=== PATIENT | male | born 1945 | race Caucasian/White ===

== ENCOUNTER → 2016-06-24 | Outpatient (CLI) | payer OTHER ==
[~2016-06-24] MED LIST: ALBU18HF INH; ALBU8.5H5 INH; ALLO300T PO; AZAT50TA9 PO; FLUT1DIS5 IH; FURO40TA6 PO; HYDR-3138 PO; IPRA4AER INH; METO25TA35 PO; MUPI22OI2 TP; POTA10TA90 PO; RANI150T4 PO; TIOT18CA INH; [UNRECOGNIZED DRUG - CODE] TP
== END | disposition home or self-care (01) ==
LOC: WOUND 14:00
PROVIDERS: ATTEND Internal Medicine
DX: S41.102D Unspecified open wound of left upper arm, subsequent encounter (principal); J44.9 Chronic obstructive pulmonary disease, unspecified; I10 Essential (primary) hypertension; Z85.828 Personal history of other malignant neoplasm of skin; Z87.891 Personal history of nicotine dependence; Z72.89 Other problems related to lifestyle; X58.XXXD Exposure to other specified factors, subsequent encounter
CPT/HCPCS: 99214

== ENCOUNTER 2016-09-20 16:55 | Emergency (ER) | payer OTHER ==
[~2016-09-20] VITALS: Ht 182.9 cm; Wt 80.0 kg
[2016-09-20 16:56] VITALS: BP 196/108
[2016-09-20] MEDS ORDERED: LIDOCAINE 1%, 20ML SQ ONE (18:00)
[2016-09-20] MEDS ORDERED: LIDOCAINE 1%, 20ML ONE (18:17)
[2016-09-20] MEDS ORDERED: DIPH,PERTUSS(ACELL),TET VAC/PF 0.5 ML IM-VACC ONE ×2 (19:53→21:00)
[2016-09-20] MEDS ORDERED: BACITRACIN ZINC OINT 500U/GM, 0.9 GM ONE (19:58)
== END 2016-09-20 20:45 | disposition home or self-care (01) ==
LOC: ED 18:20
DX: S81.011A Laceration without foreign body, right knee, initial encounter (principal); I10 Essential (primary) hypertension; W01.0XXA Fall on same level from slipping, tripping and stumbling without subsequent striking against object, initial encounter; Y93.89 Activity, other specified; Y99.8 Other external cause status; Y92.009 Unspecified place in unspecified non-institutional (private) residence as the place of occurrence of the external cause
CPT/HCPCS: 13121; 13122; 13131; 13132; 90471; 90715

== ENCOUNTER → 2017-06-04 | Outpatient (CLI) | payer MEDICARE, OTHER ==
[~2017-06-04] MED LIST changes: -HYDR-3138 PO; +HYDR-3237 PO; +POTA10TA6 PO; -POTA10TA90 PO
== END | disposition home or self-care (01) ==
LOC: WOUND 13:20
PROVIDERS: ATTEND Family Medicine
DX: S51.811A Laceration without foreign body of right forearm, initial encounter (principal); S21.212A Laceration without foreign body of left back wall of thorax without penetration into thoracic cavity, initial encounter; S60.811A Abrasion of right wrist, initial encounter; I10 Essential (primary) hypertension; J44.9 Chronic obstructive pulmonary disease, unspecified; Z85.828 Personal history of other malignant neoplasm of skin; Z87.891 Personal history of nicotine dependence; Z72.89 Other problems related to lifestyle; X58.XXXA Exposure to other specified factors, initial encounter; Y93.89 Activity, other specified; Y92.89 Other specified places as the place of occurrence of the external cause; Y99.8 Other external cause status
CPT/HCPCS: 97597; 97598; G0463; WOU0463

== ENCOUNTER → 2017-06-11 | Outpatient (CLI) | payer MEDICARE, OTHER | END | disposition home or self-care (01) | LOC: WOUND 13:17 | PROVIDERS: ATTEND Family Medicine | DX: S51.811D Laceration without foreign body of right forearm, subsequent encounter (principal); S21.212D Laceration without foreign body of left back wall of thorax without penetration into thoracic cavity, subsequent encounter; S60.811D Abrasion of right wrist, subsequent encounter; I10 Essential (primary) hypertension; J44.9 Chronic obstructive pulmonary disease, unspecified; Z85.828 Personal history of other malignant neoplasm of skin; Z87.891 Personal history of nicotine dependence; Z72.89 Other problems related to lifestyle; X58.XXXD Exposure to other specified factors, subsequent encounter | CPT/HCPCS: 97597 ==

== ENCOUNTER 2017-06-14 17:40 | Emergency (ER) | payer MEDICARE, OTHER ==
[~2017-06-14] VITALS: Ht 182.9 cm; Wt 84.0 kg
[2017-06-14] MEDS ORDERED: L.E.T SOLUTION TP ONE ×2 (18:30→18:32)
[2017-06-14 19:03] VITALS: BP 107/66
== END 2017-06-14 22:07 | disposition home or self-care (01) ==
LOC: ED 22:06
DX: S41.002A Unspecified open wound of left shoulder, initial encounter (principal); S61.502A Unspecified open wound of left wrist, initial encounter; J44.9 Chronic obstructive pulmonary disease, unspecified; I10 Essential (primary) hypertension; I25.10 Atherosclerotic heart disease of native coronary artery without angina pectoris; W18.30XA Fall on same level, unspecified, initial encounter; W19.XXXA Unspecified fall, initial encounter; Y93.89 Activity, other specified; Y99.8 Other external cause status; Y92.009 Unspecified place in unspecified non-institutional (private) residence as the place of occurrence of the external cause
CPT/HCPCS: 71045; 99283

== ENCOUNTER → 2017-06-18 | Outpatient (CLI) | payer MEDICARE, OTHER | END | disposition home or self-care (01) | LOC: WOUND 14:00 | PROVIDERS: ATTEND Family Medicine | DX: S51.812A Laceration without foreign body of left forearm, initial encounter (principal); S61.412A Laceration without foreign body of left hand, initial encounter; S21.212A Laceration without foreign body of left back wall of thorax without penetration into thoracic cavity, initial encounter; S60.811D Abrasion of right wrist, subsequent encounter; J44.9 Chronic obstructive pulmonary disease, unspecified; I10 Essential (primary) hypertension; Z85.828 Personal history of other malignant neoplasm of skin; Z87.891 Personal history of nicotine dependence; Z72.89 Other problems related to lifestyle; X58.XXXA Exposure to other specified factors, initial encounter; Y93.89 Activity, other specified; Y92.89 Other specified places as the place of occurrence of the external cause; Y99.8 Other external cause status | CPT/HCPCS: 97597; G0463; WOU0463 ==

== ENCOUNTER → 2017-06-30 | Outpatient (CLI) | payer MEDICARE, OTHER | END | disposition home or self-care (01) | LOC: WOUND 13:38 | PROVIDERS: ATTEND Internal Medicine | DX: S51.802D Unspecified open wound of left forearm, subsequent encounter (principal); S21.212D Laceration without foreign body of left back wall of thorax without penetration into thoracic cavity, subsequent encounter; S61.412D Laceration without foreign body of left hand, subsequent encounter; S60.811D Abrasion of right wrist, subsequent encounter; I10 Essential (primary) hypertension; J44.9 Chronic obstructive pulmonary disease, unspecified; I25.10 Atherosclerotic heart disease of native coronary artery without angina pectoris; Z85.828 Personal history of other malignant neoplasm of skin; Z87.891 Personal history of nicotine dependence; Z72.89 Other problems related to lifestyle; X58.XXXD Exposure to other specified factors, subsequent encounter | CPT/HCPCS: 11042; 11045 ==

== ENCOUNTER → 2017-07-07 | Outpatient (CLI) | payer MEDICARE, OTHER | END | disposition home or self-care (01) | LOC: WOUND 14:00 | PROVIDERS: ATTEND Internal Medicine | DX: S51.812D Laceration without foreign body of left forearm, subsequent encounter (principal); I10 Essential (primary) hypertension; J44.9 Chronic obstructive pulmonary disease, unspecified; I25.10 Atherosclerotic heart disease of native coronary artery without angina pectoris; Z87.891 Personal history of nicotine dependence; Z85.828 Personal history of other malignant neoplasm of skin; Z72.89 Other problems related to lifestyle; X58.XXXD Exposure to other specified factors, subsequent encounter | CPT/HCPCS: 97597 ==

== ENCOUNTER → 2017-07-20 | Outpatient (CLI) | payer MEDICARE, OTHER | END | disposition home or self-care (01) | LOC: WOUND 15:13 | PROVIDERS: ATTEND Nurse Practitioner Family | DX: S51.812D Laceration without foreign body of left forearm, subsequent encounter (principal); I10 Essential (primary) hypertension; J44.9 Chronic obstructive pulmonary disease, unspecified; M10.9 Gout, unspecified; I25.10 Atherosclerotic heart disease of native coronary artery without angina pectoris; Z72.89 Other problems related to lifestyle; Z85.820 Personal history of malignant melanoma of skin; X58.XXXD Exposure to other specified factors, subsequent encounter | CPT/HCPCS: 97597 ==

== ENCOUNTER → 2018-02-03 | Outpatient (CLI) | payer MEDICARE, OTHER ==
[~2018-02-03] MED LIST changes: +LIDOCAINE-MPF 2%, 2ML ONE
== END | disposition home or self-care (01) ==
LOC: RAD 14:04
PROVIDERS: ATTEND Internal Medicine Critical Care Medicine
DX: J43.9 Emphysema, unspecified (principal); J90 Pleural effusion, not elsewhere classified
CPT/HCPCS: 32555; 71045; 82150; 82945; 83615; 83986; 84157; 87070; 87102; 87116; 87205; 87206; 88112; 89051; J3490

== ENCOUNTER → 2018-05-30 | Outpatient (CLI) | payer OTHER ==
[~2018-05-30] MED LIST changes: -LIDOCAINE-MPF 2%, 2ML ONE
== END | disposition home or self-care (01) ==
LOC: RAD 14:29
PROVIDERS: ATTEND Internal Medicine Critical Care Medicine
DX: J43.2 Centrilobular emphysema (principal); R06.09 Other forms of dyspnea; J94.8 Other specified pleural conditions; J98.4 Other disorders of lung; M51.36 Other intervertebral disc degeneration, lumbar region; F10.10 Alcohol abuse, uncomplicated
CPT/HCPCS: 71250